=== PATIENT | female | born 1960 | race Native Hawaiian/Other Pacific Islander ===

== ENCOUNTER 2022-10-08 10:24 | Emergency (ER) | payer BC ==
[~2022-10-08] VITALS: Ht 180.3 cm; Wt 81.6 kg
[2022-10-08 10:48] LABS: PLATELET COUNT 520 K/uL (152-353)
[2022-10-08 11:00] LABS: POTASSIUM 3.1 mmol/L (3.6-5.2)
[2022-10-08 20:00] VITALS: BP 140/78; TEMP 98.2
== END 2022-10-08 22:30 | disposition still patient (30) ==
LOC: ED 10:28
PROVIDERS: Emergency Medicine
DX: F11.20 Opioid dependence, uncomplicated (principal); Z11.52 Encounter for screening for COVID-19
CPT/HCPCS: 80053; 80143; 80179; 80307; 80320; 81002; 85027; 87635; 93005; 99285; U0003

== ENCOUNTER 2023-03-21 11:43 | Outpatient (CLI) | payer OTHER ==
[~2023-03-21] VITALS: Ht 180.3 cm; Wt 81.6 kg
[2023-03-21 11:52] VITALS: BP 129/60; TEMP 97.9
[2023-03-21 13:50] VITALS: BP 124/56; TEMP 97.5
== END 2023-03-21 18:59 | disposition home or self-care (01) ==
LOC: INF 11:43
PROVIDERS: ATTEND Family Medicine
DX: D50.8 Other iron deficiency anemias (principal)
CPT/HCPCS: 96365; J1756

== ENCOUNTER 2023-03-27 10:01 | Outpatient (CLI) | payer OTHER ==
[~2023-03-27] VITALS: Ht 180.3 cm; Wt 80.7 kg
[2023-03-27 10:14] VITALS: BP 121/81; TEMP 98
== END 2023-03-27 19:11 | disposition home or self-care (01) ==
LOC: INF 10:01
PROVIDERS: ATTEND Internal Medicine
DX: D50.8 Other iron deficiency anemias (principal)
CPT/HCPCS: 96365; J1756